=== PATIENT | female | born 1950 | race African-American/Black ===

== ENCOUNTER 2019-08-03 10:44 | Emergency (ER) | payer MEDICARE ==
[~2019-08-03] VITALS: Ht 165.1 cm; Wt 90.0 kg
[~2019-08-03 10:44] MED LIST: ASPI-518 PO; BISA-81 PO; BLOOD PRESSURE; BLOOD PRESSURE PILL; METF1000; METOPROLOL; NITR12SP6 TL; SIMV80TA2 PO
[2019-08-03 13:30] VITALS: BP 148/84
== END 2019-08-03 14:06 | disposition home or self-care (01) ==
LOC: ER 10:44
DX: R51 Headache (principal); I10 Essential (primary) hypertension; E11.9 Type 2 diabetes mellitus without complications; I25.10 Atherosclerotic heart disease of native coronary artery without angina pectoris; Z79.84 Long term (current) use of oral hypoglycemic drugs; Z79.82 Long term (current) use of aspirin
CPT/HCPCS: 71045; 99284